=== PATIENT | female | born 1945 | race Caucasian/White ===

== ENCOUNTER → 2017-03-13 | Outpatient (CLI) | payer MEDICARE ==
[~2017-03-13] MED LIST: ASPIRIN 32325 MG/TAB PO; AVAPRO300 M1 PO; CALCIUM 600 W/V1 TAB PO; EPA FISH OIL1000 MG PO; FERRATE325 MG PO; HCTZ 25MG TAB25 MG PO; JUICE PLUS WIT240 ML PO; LEXAPRO 10MG10 MG PO; LOFIBRA160 MG PO; NEURONTIN300 MG/CAP PO; NORCO 325 MG-51 TAB PO; NORVASC 10MG10 MG PO; PRIL40 PO; TRICOR 48MG48 MG; ZIAC 10/6.25M1 UDTAB PO; ZIAC 2.5/6.25MG1 TAB; ZOCOR 20MG20 MG PO; ZOFRAN 4MG T4 MG/TAB PO
== END ==
LOC: MHCPAIN 12:53
DX: G89.29 Other chronic pain (principal); M47.817 Spondylosis without myelopathy or radiculopathy, lumbosacral region; M53.3 Sacrococcygeal disorders, not elsewhere classified; M41.9 Scoliosis, unspecified; Z79.82 Long term (current) use of aspirin
CPT/HCPCS: G0463

== ENCOUNTER → 2017-04-04 | Outpatient (CLI) | payer MEDICARE | LOC: MHCPAIN 13:03 | DX: G89.29 Other chronic pain (principal); M47.817 Spondylosis without myelopathy or radiculopathy, lumbosacral region; M41.9 Scoliosis, unspecified | CPT/HCPCS: G0463 ==

== ENCOUNTER → 2017-04-12 | Outpatient (CLI) | payer MEDICARE | LOC: MHCPAIN 08:55 | DX: M47.817 Spondylosis without myelopathy or radiculopathy, lumbosacral region (principal) ==

== ENCOUNTER → 2017-04-17 | Outpatient (CLI) | payer MEDICARE | LOC: MHCPAIN 12:52 | DX: G89.29 Other chronic pain (principal); M47.817 Spondylosis without myelopathy or radiculopathy, lumbosacral region; M41.9 Scoliosis, unspecified | CPT/HCPCS: G0463 ==

== ENCOUNTER → 2017-05-10 | Outpatient (CLI) | payer MEDICARE | LOC: MHCPAIN 09:41 | DX: M47.817 Spondylosis without myelopathy or radiculopathy, lumbosacral region (principal) | CPT/HCPCS: J1100; J2250; J2405; J3010 ==

== ENCOUNTER → 2017-06-13 | Outpatient (CLI) | payer MEDICARE | LOC: MHCPAIN 10:13 | DX: G89.29 Other chronic pain (principal); M47.817 Spondylosis without myelopathy or radiculopathy, lumbosacral region; M41.9 Scoliosis, unspecified | CPT/HCPCS: G0463 ==

== ENCOUNTER 2017-08-08 15:15 | Outpatient (RCR) | payer MEDICARE | END 2017-08-13 | disposition home or self-care (01) | LOC: WSPT | DX: M47.817 Spondylosis without myelopathy or radiculopathy, lumbosacral region (principal); M41.9 Scoliosis, unspecified | CPT/HCPCS: G8978-GP; G8979-GP ==

== ENCOUNTER 2017-08-22 14:45 | Outpatient (RCR) | payer MEDICARE | END 2017-08-23 12:42 | disposition home or self-care (01) | LOC: WSPT 14:45 | DX: M47.817 Spondylosis without myelopathy or radiculopathy, lumbosacral region (principal); G89.29 Other chronic pain; M41.9 Scoliosis, unspecified; Z91.040 Latex allergy status | CPT/HCPCS: G8979-GP; G8980-GP ==

== ENCOUNTER → 2017-09-11 | Outpatient (CLI) | payer MEDICARE | LOC: MHCPAIN 13:31 | DX: G89.29 Other chronic pain (principal); M47.817 Spondylosis without myelopathy or radiculopathy, lumbosacral region; M53.3 Sacrococcygeal disorders, not elsewhere classified; M41.9 Scoliosis, unspecified | CPT/HCPCS: G0463 ==

== ENCOUNTER 2019-04-28 13:49 | Outpatient (CLI) | payer MEDICARE, OTHER ==
[~2019-04-28] VITALS: Ht 167.6 cm; Wt 85.3 kg
[2019-04-28] MEDS ORDERED: DITROPAN XL10 MG PO (14:21)
[2019-04-28 14:22] VITALS: BP 118/56; PULSE 62; TEMP 98
== END 2019-04-28 14:48 | disposition home or self-care (01) ==
LOC: EUO 13:49
DX: M81.0 Age-related osteoporosis without current pathological fracture (principal)
CPT/HCPCS: J0897

== ENCOUNTER 2019-06-11 08:30 | Outpatient (RCR) | payer MEDICARE, OTHER ==
[~2019-06-11 08:30] MED LIST changes: +DITROPAN XL10 MG PO
== END 2019-06-12 | disposition home or self-care (01) ==
LOC: WSPT
DX: M47.816 Spondylosis without myelopathy or radiculopathy, lumbar region (principal); M41.86 Other forms of scoliosis, lumbar region

== ENCOUNTER 2019-07-23 15:45 | Outpatient (RCR) | payer MEDICARE, OTHER | END 2019-08-07 14:21 | disposition home or self-care (01) | LOC: WSPT 15:45 | DX: M47.816 Spondylosis without myelopathy or radiculopathy, lumbar region (principal); M41.86 Other forms of scoliosis, lumbar region ==

== ENCOUNTER 2019-11-20 11:34 | Outpatient (CLI) | payer MEDICARE, OTHER ==
[~2019-11-20] VITALS: Ht 167.6 cm; Wt 87.9 kg
[2019-11-20] MEDS ORDERED: VITAMIN B12 1541 TAB PO (11:51)
[2019-11-20] MEDS ORDERED: MULTI VITAMINS1 TAB PO (11:52)
[2019-11-20] MEDS ORDERED: ASPIRIN 32325 MG/TAB PO (11:54)
[2019-11-20] MEDS ORDERED: VIACTIV PO (11:55)
[2019-11-20] MEDS ORDERED: VITAMIN C500 MG PO (11:55)
[2019-11-20 11:56] VITALS: BP 143/68; PULSE 65; TEMP 98
[2019-11-20] MEDS ORDERED: TYLENOL 500MG500 MG PO (11:56)
== END 2019-11-20 12:15 | disposition home or self-care (01) ==
LOC: EUO 11:34
DX: M81.0 Age-related osteoporosis without current pathological fracture (principal)
CPT/HCPCS: J0897

== ENCOUNTER 2020-05-26 15:00 | Outpatient (CLI) | payer MEDICARE, OTHER ==
[~2020-05-26] VITALS: Ht 167.6 cm; Wt 89.3 kg
[~2020-05-26 15:00] MED LIST changes: +MULTI VITAMINS1 TAB PO; +TYLENOL 500MG500 MG PO; +VIACTIV PO; +VITAMIN B12 1541 TAB PO; +VITAMIN C500 MG PO
[2020-05-26 15:37] VITALS: BP 138/74; PULSE 70; TEMP 98.4
== END 2020-05-26 16:11 | disposition home or self-care (01) ==
LOC: EUO 15:00
DX: M81.0 Age-related osteoporosis without current pathological fracture (principal)
CPT/HCPCS: J0897

== ENCOUNTER 2020-12-01 12:34 | Outpatient (CLI) | payer MEDICARE, OTHER ==
[~2020-12-01] VITALS: Ht 167.6 cm; Wt 90.3 kg
[2020-12-01 13:06] VITALS: BP 125/54; PULSE 65; TEMP 98
== END 2020-12-01 13:07 | disposition home or self-care (01) ==
LOC: EUO 12:34
DX: M81.0 Age-related osteoporosis without current pathological fracture (principal)
CPT/HCPCS: J0897

== ENCOUNTER 2021-06-27 15:28 | Outpatient (CLI) | payer MEDICARE ==
[~2021-06-27] VITALS: Ht 167.6 cm; Wt 89.1 kg
[2021-06-27 15:58] VITALS: BP 154/65; PULSE 65; TEMP 98.2
[2021-06-27] MEDS ORDERED: VITAMIND3 5000 PO (16:02)
== END 2021-06-27 16:05 ==
LOC: EUO 15:28
DX: M81.0 Age-related osteoporosis without current pathological fracture (principal)
CPT/HCPCS: J0897

== ENCOUNTER 2022-07-29 13:44 | Inpatient (IN) | payer MEDICARE ==
[~2022-07-29] VITALS: Ht 165.1 cm; Wt 84.0 kg
[~2022-07-29 13:44] MED LIST changes: +VITAMIND3 5000 PO
[2022-07-29 14:48] LABS: BASO % 0.6 % (0.0-2.0); EOS # 0.1 K/mm3 (0.0-0.7); EOS % 1.1 % (0.0-4.0); GRAN # 4.8 K/mm3 (1.4-6.5); GRAN % 72.8 % (42.2-75.2); HEMATOCRIT 42.2 % (37.0-47.0); HEMOGLOBIN 14.4 g/dl (12.5-16.0); LYMPH # 1.2 K/mm3 (1.2-3.4); LYMPH % 17.8 % (20.0-51.0); MEAN CELL VOLUME 98 fl (80.0-100.0); MEAN CORPUSCULAR HEMOGLOBIN 33 pg (27-31); MEAN CORPUSCULAR HGB CONC 34 g/dl (33.0-37.0); MEAN PLATELET VOLUME 9.6 fl (7.4-10.4); MONO # 0.5 K/mm3 (0.1-0.6); MONO % 7.4 % (1.7-9.3); PLATELET COUNT 229 K/mm3 (130-400); RED BLOOD COUNT 4.31 M/mm3 (4.10-5.30); REDCELL DISTRIBUTION WIDTH-CV 11.9 % (11.5-14.5)
[2022-07-29 15:08] LABS: ALANINE AMINOTRANSFERASE 19 U/L (0-55); ALBUMIN 4.2 gm/dL (3.4-4.8); ALKALINE PHOSPHATASE 69 U/L (40-150); ANION GAP 11 mmol/L (7-16); AST,SGOT 15 U/L (5-34); BILIRUBIN,TOTAL 0.4 mg/dL (0.2-1.2); BLOOD UREA NITROGEN 20 mg/dL (10-20); CALCIUM 9.6 mg/dL (8.4-10.2); CARBON DIOXIDE 22 mmol/L (23-31); CHLORIDE 106 mmol/L (98-107); GLUCOSE 107 mg/dL (70-99); MAGNESIUM 2.1 mg/dL (1.6-2.6); PHOSPHOROUS 3.1 mg/dL (2.3-4.7); POTASSIUM 4.2 mmol/L (3.5-4.5); SODIUM 139 mmol/L (136-145); TOTAL PROTEIN 7.1 gm/dL (6.2-8.1)
[2022-07-29 15:23] LABS: TROPONIN-I < 0.010 ng/mL (0.00-0.033)
[2022-07-29 15:28] LABS: THYROID STIMULATING HORMONE 0.912 uIU/mL (0.350-4.940)
[2022-07-29 16:12] LABS: COLLECTION METHOD CLEAN CATCH
[2022-07-29 16:24] LABS: MUCOUS Present (NOT PRESENT); SQUAMOUS EPITHELIAL 0-2 /hpf (0-10); URINE BACTERIA None Seen /hpf (NONE SEEN); URINE RBC 0-2 /hpf (0-2); URINE WBC 0-2 /hpf (0-2)
[2022-07-29 16:25] LABS: URINE APPEARANCE Clear (CLEAR/HAZY); URINE BLOOD Negative (NEGATIVE); URINE COLOR Yellow (YELLOW); URINE GLUCOSE Negative (NEGATIVE); URINE KETONE Negative (NEGATIVE); URINE NITRATE Negative (NEGATIVE); URINE PROTEIN(semi-quant) Negative (NEGATIVE); URINE UROBILINOGEN 0.2 (NEGATIVE)
[2022-07-29] MEDS ORDERED: TIROSINT50 MC1 PO (18:17)
--- NOTE | 2022-07-29 18:35 | NUR ---
Patient to room 317 from the ED. A&Ox4. VSS. IV CDI. Denies pain and discomfort. Nurse oriented the patient to location, room, and call light. No further needs expressed. Call light within reach
[2022-07-29 18:36] VITALS: BP 145/92; PULSE 102; TEMP 99.1
[2022-07-29 20:03] VITALS: BP 133/78; PULSE 84; TEMP 98.1
[2022-07-29 22:55] VITALS: BP 145/98; PULSE 88; TEMP 98.4
--- NOTE | 2022-07-29 23:50 | NUR ---
NURSING SHIFT ASSESSMENT COMPLETED DURING THE ADMISSION ASSESSMENT THE PATIENT ARRIVED DURING SHIFT CHANGE. SEE ADMISSION ASSESSMENT NOTE. CURRENTLY THE PATIENT IS ALERT AND ORIENTED AND APPROPRIATE. CARDIZEM DRIP CONTINUES PER ORDERS. AFIB NOTED ON THE MONITOR WITH A CONTROLLED RATE. WILL MONITOR.
[2022-07-30] VITALS (9 sets, daily range): BP systolic 118–144; BP diastolic 54–81; PULSE 58–100; TEMP 97.7–98.8
--- NOTE | 2022-07-30 02:20 | NUR ---
THE PATIENT CALLED AT 0122 AND STATED "I FEEL LIKE MY CHEST IS TIGHT AND MY HEART IS FLUTTERY." A SET OF VITAL SIGNS WERE OBTAINED AND THEY WERE WITHIN NORMAL LIMITS. EDUCATION WAS PROVIDED ABOUT AFIB/FLUTTER AND THE PATIENT STATED THAT THE RELATED SYMPTOMS WERE THE SAME WHAT BROUGHT HER TO THE HOSPITAL. NO NEW SYMPTOMS WERE NOTED. A FLUTTER WAS NOTED ON THE MONITOR AT THIS TIME. THE PATIENT REPORTED A HEADACHE WELL. ABBEY FORTE WAS NOTIFIED OF THESE SYMPTOMS AND THE PATIENT'S SITUATION WAS DISCUSSED. NEW ORDERS RECEIVED. WILL CONTINUE TO MONITOR.
[2022-07-30 07:11] LABS: CALCIUM 8.8 mg/dL (8.4-10.2); CREATININE, serum 0.84 mg/dL (0.57-1.11); POTASSIUM 4.1 mmol/L (3.5-4.5)
[2022-07-30 07:18] LABS: BASO # 0.1 K/mm3 (0.0-0.2); BASO % 0.8 % (0.0-2.0); EOS # 0.2 K/mm3 (0.0-0.7); EOS % 2.8 % (0.0-4.0); GRAN # 3.7 K/mm3 (1.4-6.5); GRAN % 61.1 % (42.2-75.2); HEMATOCRIT 41.3 % (37.0-47.0); HEMOGLOBIN 14.4 g/dl (12.5-16.0); LYMPH # 1.5 K/mm3 (1.2-3.4); LYMPH % 25.1 % (20.0-51.0); MEAN CELL VOLUME 96 fl (80.0-100.0); MEAN CORPUSCULAR HEMOGLOBIN 33 pg (27-31); MEAN CORPUSCULAR HGB CONC 35 g/dl (33.0-37.0); MONO # 0.6 K/mm3 (0.1-0.6); MONO % 9.7 % (1.7-9.3); PLATELET COUNT 232 K/mm3 (130-400); RED BLOOD COUNT 4.32 M/mm3 (4.10-5.30); REDCELL DISTRIBUTION WIDTH-CV 11.9 % (11.5-14.5)
--- NOTE | 2022-07-30 08:00 | NUR ---
Patient laying in bed, A&Ox4. VSS. IV CDI, fluids infusing. Denies pain and discomfort. Call light within reach
--- NOTE | 2022-07-30 13:07 | NUR ---
SW met with patient to complete intake. Patient provides she lives [facility] with her Jasper Grant [phone]. Patient provides she occasionally uses a cane when needed, is independent with ADL's and does not utilize HH services at this time. PCP is Dr. Kern and pharmacy is [facility]. DPOA/HC is spouse. Patient plans to returm to her home upon DC. SW will continue to follow. DC plan: home
[2022-07-30 14:31] LABS: INR 1.3 (0.8-3.0); PROTHROMBIN TIME 15.3 SECONDS (9.7-12.8)
[2022-07-30 14:34] LABS: CALCIUM 9.3 mg/dL (8.4-10.2); CREATININE, serum 0.94 mg/dL (0.57-1.11); POTASSIUM 4.3 mmol/L (3.5-4.5)
[2022-07-31] VITALS (15 sets, daily range): BP systolic 108–147; BP diastolic 51–85; PULSE 59–122; TEMP 98.4–98.8
[2022-07-31 06:43] LABS: BASO % 0.6 % (0.0-2.0); EOS # 0.1 K/mm3 (0.0-0.7); EOS % 1.4 % (0.0-4.0); GRAN # 4.9 K/mm3 (1.4-6.5); GRAN % 74.1 % (42.2-75.2); HEMATOCRIT 41.6 % (37.0-47.0); HEMOGLOBIN 14.3 g/dl (12.5-16.0); LYMPH % 14.3 % (20.0-51.0); MEAN CELL VOLUME 95 fl (80.0-100.0); MEAN CORPUSCULAR HEMOGLOBIN 33 pg (27-31); MEAN CORPUSCULAR HGB CONC 34 g/dl (33.0-37.0); MEAN PLATELET VOLUME 9.7 fl (7.4-10.4); MONO # 0.6 K/mm3 (0.1-0.6); MONO % 9.6 % (1.7-9.3); PLATELET COUNT 235 K/mm3 (130-400); RED BLOOD COUNT 4.36 M/mm3 (4.10-5.30); REDCELL DISTRIBUTION WIDTH-CV 11.7 % (11.5-14.5)
[2022-07-31 07:01] LABS: CREATININE, serum 0.79 mg/dL (0.57-1.11)
--- NOTE | 2022-07-31 08:48 | NUR ---
NURSING SHIFT ASSESSMENT COMPLETED. THE PATIENT DENIED PAIN OR DISCOMFORT. CARDIZEM DRIP CONTINUES AT ORDERED RATE. A FIB/FLUTTER NOTED ON THE MONITOR RATE CONTROLLED. NO NEEDS AT THIS TIME. WILL MONITOR.
--- NOTE | 2022-07-31 10:46 | NUR ---
PT RESTING IN BED. MORNING MEDICATIONS GIVEN. SHIFT ASSESSMENT COMPLETED. PT [facility] KISER ON HOLD FOR PROCEDURE. PT UPDATED ON POC, CONSENT FOR PROCEDURE SIGNED AND ON THE CHART. PT DENIES ANY PAIN OR NEDS. ZOFRAN GIVEN PROIOR TO PROCEDURE DUE TO ANESTHESIA REACTIONS. CALL LIGHT WITHIN REACH. PT REMAINS NPO. WILL CONTINUE TO MONITOR.
[2022-07-31 10:54] LABS: INR 1.4 (0.8-3.0); PROTHROMBIN TIME 15.6 SECONDS (9.7-12.8)
[2022-07-31 11:31] LABS: CALCIUM 8.9 mg/dL (8.4-10.2); CREATININE, serum 0.87 mg/dL (0.57-1.11); POTASSIUM 4.1 mmol/L (3.5-4.5)
--- NOTE | 2022-07-31 18:22 | NUR ---
PT REMAINS IN NSR FOLLOWING CARDIOVERSION. DENIES ANY PAIN OR NEEDS THROUGHOUT SHIFT. VSS. WILL PASS ALONG REPORT TO ONCOMING RN.
--- NOTE | 2022-07-31 23:19 | NUR ---
Patient assessed around 2024. Complained of nausea. Does have a history of nausea with anesthesia. Given PRN Zofran per orders. Remains in normal sinus on telemetry. Some redness to chest/back from cardioversion pads. Denies itching and discomfort to areas. Voices no further questions, needs, or concerns at this time. In bed with call light within reach. High fall risk precautions in place. Bed alarm on.
[2022-08-01 00:32] VITALS: BP 115/59; PULSE 56; TEMP 98
[2022-08-01 04:12] VITALS: BP 115/51; PULSE 54; TEMP 98.2
--- NOTE | 2022-08-01 05:36 | NUR ---
No further complaints of nausea this shift. Denies having pain and discomfort. Remains in sinus rhythm. Voices no questions, needs, or concerns at this time. In bed with call light within reach.
[2022-08-01 06:42] LABS: BASO % 0.7 % (0.0-2.0); EOS # 0.2 K/mm3 (0.0-0.7); EOS % 2.5 % (0.0-4.0); GRAN # 3.9 K/mm3 (1.4-6.5); HEMATOCRIT 38.3 % (37.0-47.0); HEMOGLOBIN 13.1 g/dl (12.5-16.0); LYMPH # 1.4 K/mm3 (1.2-3.4); LYMPH % 22.5 % (20.0-51.0); MEAN CELL VOLUME 96 fl (80.0-100.0); MEAN CORPUSCULAR HEMOGLOBIN 33 pg (27-31); MEAN CORPUSCULAR HGB CONC 34 g/dl (33.0-37.0); MEAN PLATELET VOLUME 10.1 fl (7.4-10.4); MONO # 0.6 K/mm3 (0.1-0.6); MONO % 10.1 % (1.7-9.3); PLATELET COUNT 233 K/mm3 (130-400); RED BLOOD COUNT 3.98 M/mm3 (4.10-5.30); REDCELL DISTRIBUTION WIDTH-CV 11.9 % (11.5-14.5)
[2022-08-01 06:57] LABS: CALCIUM 8.5 mg/dL (8.4-10.2); POTASSIUM 4.4 mmol/L (3.5-4.5)
[2022-08-01 07:59] VITALS: BP 100/55; PULSE 53; TEMP 98.2
--- NOTE | 2022-08-01 08:19 | NUR ---
Assessment complete. A/O x4. Tele reading SB. Denies pain or needs at this time.
--- NOTE | 2022-08-01 11:41 | NUR ---
Initial visit: Pt was resting and content. Pt has no needs right now. Pt apprecaited the visit. 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
[2022-08-01 12:28] VITALS: BP 119/54; PULSE 54; TEMP 98.3
[2022-08-01] MEDS ORDERED: ELIQUIS 5MG PO (12:30)
[2022-08-01] MEDS ORDERED: BETAPACE 80MG80 MG PO (12:30)
--- NOTE | 2022-08-01 15:20 | NUR ---
Discharge instructions reviewed with patient and her spouse. Both verbalize understanding. INT to RFA d/c'd with cath tip intact. Tele d/c'd. IV site to RFA and previous IV site to LAC red- encouraged pt to use warm moist heat to both sites once at home. Pt discharged home with spouse via private vehicle.
== END 2022-08-01 15:20 | disposition home or self-care (01) | DRG 310 ==
LOC: COL.ER 13:44 → MEDICAL 17:19
PROVIDERS: Emergency Medicine; Internal Medicine Cardiovascular Disease; Physician Assistant; ADMIT Family Medicine
PROC: 5A2204Z Restoration of Cardiac Rhythm, Single (ICD-10-PCS; principal; 2022-07-31)
DX: I48.0 Paroxysmal atrial fibrillation (principal); E03.9 Hypothyroidism, unspecified; I10 Essential (primary) hypertension; F32.A Depression, unspecified; G25.81 Restless legs syndrome; K21.9 Gastro-esophageal reflux disease without esophagitis; Z96.653 Presence of artificial knee joint, bilateral; M19.90 Unspecified osteoarthritis, unspecified site; I08.2 Rheumatic disorders of both aortic and tricuspid valves; H26.9 Unspecified cataract; Z90.710 Acquired absence of both cervix and uterus; Z88.4 Allergy status to anesthetic agent; Z79.890 Hormone replacement therapy; Z91.81 History of falling; Z86.73 Personal history of transient ischemic attack (TIA), and cerebral infarction without residual deficits; Z23 Encounter for immunization
CPT/HCPCS: OP; A9500; G0378; J2704; J2785

== ENCOUNTER 2022-09-26 14:35 | Outpatient (CLI) | payer MEDICARE ==
[~2022-09-26] VITALS: Ht 165.2 cm; Wt 82.0 kg
[~2022-09-26 14:35] MED LIST changes: +BETAPACE 80MG80 MG PO; +CARDIZEM 30MG T30 MG PO; +ELIQUIS 5MG PO; +IRON TABLETS325 MG PO; +MAG-OX 400400 MG/TAB PO; +PACERONE200 MG PO; +TIROSINT50 MC1 PO
[2022-09-26 14:59] VITALS: BP 159/78; PULSE 57; TEMP 98.4
--- NOTE | 2022-09-26 15:47 | NUR ---
PT WAS BROUGHT BY WHEELCHAIR TO [facility] FOR A PROLIA INJECTION. MEDS AND HX REVIEWED. PT HAD NO NEW CONCERNS AT THIS TIME. PT TOLERATED PROLIA INJECTION. POST INJECTION, PT WAS WHEELED OFF THE EU TO THIER CAR.
== END 2022-09-26 15:38 | disposition home or self-care (01) ==
LOC: EUO 14:35
DX: M81.0 Age-related osteoporosis without current pathological fracture (principal)
CPT/HCPCS: J0897